=== PATIENT | female | born 1950 | race Caucasian/White ===

== ENCOUNTER 2017-07-25 02:16 | Emergency (ER) | payer BC, MEDICARE ==
[2017-07-25] MEDS ORDERED: Pantoprazole IV* 40 MG IV ONE (02:37)
[2017-07-25] MEDS ORDERED: Ondansetron INJ* 2 MG/ML VIAL IV ONE (02:37)
[2017-07-25] MEDS ORDERED: NS 0.9% 1000 ML* 2,000 ML IV ONE (02:37)
[2017-07-25] MEDS ORDERED: Diphenoxylat/Atrop 2.5-0.025M* 1 TAB PO ONE (02:38)
[2017-07-25 03:02] LABS: ABS Basophils 0 10^3/ul (0-0.2); ABS Eosinophils 0 10^3/ul (0-0.6); ABS Lymphocytes 0.9 10^3/ul (1.0-4.8); ABS Monocytes 0.2 10^3/ul (0-0.8); ABS Neutrophils 11.2 10^3/ul (1.5-7.7); ABS Nucleated RBC 0 10^3/ul; Eosinophil % 0.1 % (0-6); Hematocrit 39 % (35-47); Hemoglobin 13.3 g/dl (12.0-16.0); Lymphocyte % 7.2 % (25-47); Mean Corpuscular HGB Conc 34 g/dl (31-36); Mean Corpuscular Hemoglobin 31 pg (27-31); Mean Corpuscular Volume 92 fL (80-97); Mean Platelet Volume 8.5 um3 (7.4-10.4); Nucleated Red Blood Cells % 0; Platelet Count 207 10^3/ul (150-450); Red Blood Count 4.24 10^6/ul (4.0-5.4); Red Cell Distribution Width 13 % (10.5-15); White Blood Count 12.3 10^3/ul (3.5-10.8)
[2017-07-25] MEDS ORDERED: Metoclopramide IV* 5 MG/ML 2 ML VIAL IV SLOW PU ONE (04:10)
[2017-07-25 04:28] LABS: Urine Appearance Clear; Urine Blood 2+ (Negative); Urine Color Yellow; Urine Ketones Negative (Negative); Urine Protein Negative (Negative); Urine Specific Gravity 1.009 (1.010-1.030); Urine Urobilinogen Negative (Negative)
[2017-07-25 05:53] VITALS: BP 114/66
--- NOTE | 2017-07-25 06:03 | ED ---
Annie Tony Rebecca, scribed for Elpidio Cao MD on 07/25/17 at 0239 . Complex/Multi-Sys Presentation - HPI Summary HPI Summary: Pt is a 67 y/o F who presents to ED c/o N/V/D. Symptoms began about 3 hours [employer] and her states that she cannot keep any PO intake down. Additionally note abdominal pain and generalized weakness. Denies fever. For dinner, the pt had a sandwich with sprouts and vegetables, no meat, and red wine. 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 Negative: Fever - Allergies/Home Medications Allergies/Adverse Reactions: Allergies Allergy/AdvReac Type Severity Reaction Status Date / Time No Known Allergies Allergy Verified 07/25/17 04:07 PMH/Surg Hx/FS Hx/Imm Hx Previously Healthy: Yes Endocrine/Hematology History: Denies: Hx Diabetes Cardiovascular History: Denies: Hx Coronary Artery Disease - Surgical History Surgery Procedure, Year, and Place: x 2 Infectious Disease History: No Infectious Disease History: Denies: Hx Clostridium Difficile, Hx Hepatitis, Hx Human Immunodeficiency Virus (HIV), Hx of Known/Suspected MRSA, Hx Shingles, Hx Tuberculosis, Hx Known/ Suspected VRE, Hx Known/Suspected VRSA, History Other Infectious Disease, Traveled Outside the [place] in Last 30 Days - Family History Known Family History: Negative: Diabetes - Social History Alcohol Use: Occasionally Substance Use Type: Reports: None Smoking Status (MU): Never Smoked Tobacco Review of Systems Positive: Other - Generalized weakness. Negative: Fever Positive: Abdominal Pain, Vomiting, Diarrhea, Nausea All Other Systems Reviewed And Are Negative: Yes Physical Exam - Summary Physical Exam Summary: VITAL SIGNS: Reviewed. GENERAL: ~Patient is a well-developed and nourished female who is lying comfortable in the stretcher. Patient is not in any acute respiratory distress. HEAD AND FACE: No signs of trauma. No ecchymosis, hematomas or skull depressions. No sinus tenderness. EYES: PERRLA, EOMI x 2, No injected conjunctiva, no nystagmus. EARS: Hearing grossly intact. Ear canals and tympanic membranes are within normal limits. MOUTH: Oropharynx within normal limits. NECK: Supple, trachea is midline, no adenopathy, no JVD, no carotid bruit, no c- spine tenderness, neck with full ROM. CHEST: Symmetric, no tenderness at palpation LUNGS: Clear to auscultation bilaterally. No wheezing or crackles. CVS: Regular rate and rhythm, S1 and S2 present, no murmurs or gallops appreciated. ABDOMEN: Soft, non-tender. No signs of distention. No rebound no guarding, and no masses palpated. Bowel sounds are hyperactive. EXTREMITIES: FROM in all major joints, no edema, no cyanosis or clubbing. NEURO: Alert and oriented x 3. No acute neurological deficits. Speech is normal and follows commands. SKIN: Dry and warm Triage Information Reviewed: Yes Vital Signs On Initial Exam: Initial Vitals Temp Pulse Resp BP Pulse Ox 97.5 F 74 16 133/78 100 07/25/17 02:18 07/25/17 02:18 07/25/17 02:18 07/25/17 02:18 07/25/17 02:18 Vital Signs Reviewed: Yes Diagnostics - Vital Signs Vital Signs Temp Pulse Resp BP Pulse Ox 07/25/17 02:33 69 98 07/25/17 02:32 131/78 07/25/17 02:18 97.5 F 74 16 133/78 100 - Laboratory Result Diagrams: 07/25/17 02:51 07/25/17 02:51 Lab Statement: Any lab studies that have been ordered have been reviewed, and results considered in the medical decision making process. Re-Evaluation - Re-Evaluation First Eval Re-Evaluation Time: 05:35 Change: Improved Comment: Pt feels better. Complex Multi-Symp Course/Dx Assessment/Plan: Pt is a 67 y/o F who presents to ED c/o N/V/D beginning about 3 hours [employer]PER[employer] HEL[employer] and her states that she cannot keep any PO intake down. Additionally note abdominal pain and generalized weakness. Denies fever. For dinner, the pt had a sandwich with sprouts and vegetables, no meat, and red wine. Bloodwork and UA were done. In the ED course pt received Lomotil, Reglan, Zofran, Protonix, and fluids which improved her sx. Pt will be D/C to home with Dx of gastroenteritis/food posioning with a followup with her PCP. She understands and agrees. - Diagnoses Provider Diagnoses: Gastroenteritis, Food poisoning Discharge - Sign-Out/Discharge Documenting (check all that apply): Discharge - Discharge - Discharge Plan Condition: Stable Disposition: HOME Patient Education Materials: Gastroenteritis (ED), Food Poisoning (ED) Referrals: Marianela Shelton MD [Primary Care Provider] - 3 Days Additional Instructions: RETURN TO EMERGENCY DEPARTMENT FOR ANY NEW OR WORSENING SYMPTOMS The documentation as recorded by the Annie becerra Rebecca accurately reflects the service I personally performed and the decisions made by me, Elpidio Cao MD.
== END 2017-07-25 05:55 | disposition home or self-care (01) ==
LOC: ED 02:16
DX: K52.9 Noninfective gastroenteritis and colitis, unspecified (principal); T62.91XA Toxic effect of unspecified noxious substance eaten as food, accidental (unintentional), initial encounter; R10.9 Unspecified abdominal pain; R11.2 Nausea with vomiting, unspecified; R19.7 Diarrhea, unspecified; Y92.9 Unspecified place or not applicable
CPT/HCPCS: 36415; 80053; 81003; 81015; 83690; 85025; 86140; 87086; 96361; 96374; 96375; 99284; A9270-GY; J2405; J2765